=== PATIENT | male | born 1985 | race Caucasian/White ===

== ENCOUNTER 2016-06-23 20:30 | Emergency (ER) | payer OTHER ==
[2016-06-23 20:35] VITALS: TEMP 98.8
[2016-06-23] MEDS ORDERED: SODIUM CHLORIDE 0.9% 1,000 ML IV STA (21:01)
--- NOTE | 2016-06-23 21:06 | ED ---
Recheck HPI - General Chief Complaint: Recheck/Abnormal Lab/Rx Stated Complaint: high blood pressure Time Seen by Provider: 06/23/16 20:38 Source: patient, RN notes reviewed, old records reviewed Mode of arrival: wheelchair Limitations: no limitations - History of Present Illness Initial Comments: Patient is a 31-year-old male with chief complaint of high blood pressure earlier today as well as headache. 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 Patient reports that his blood pressure was 176/90. He reports that his blood pressure is never this elevated, and his blood pressure is usually 90/50. He also reports that his headache is severe and currently rated to be in and out of 10. Patient states that he woke up with a headache 8:00 and has persisted throughout today. He has not taken any Motrin or Tylenol. He also reports that at times he'll have some blurred vision. He denies any changes in vision at this time. Patient reports that he was seen in [place]'s emergency department approximately week ago and had a full cardiac workup was negative. He states that he does have a follow-up appointment on Thursday with a beach expert. Patient states that throughout the days also had occasional intermittent chest pains. Patient denies any recent fever, chills, shortness of breath, back pain, abdominal pain, nausea vomiting, numbness or tingling, dysuria or hematuria, constipation or diarrhea, or any other current symptoms. - Related Data Home Medications Medication Instructions Recorded Confirmed Ascorbic Acid [Vitamin C] 500 mg PO DAILY 06/23/16 06/23/16 Multivitamins, Thera [Multivitamin] 1 tab PO DAILY 06/23/16 06/23/16 Varenicline [Chantix] 1 mg PO BID 06/23/16 06/23/16 Previous Rx's Medication Instructions Recorded Oseltamivir [Tamiflu] 75 mg PO Q12HR #10 cap 06/23/16 Allergies Allergy/AdvReac Type Severity Reaction Status Date / Time No Known Allergies Allergy Verified 06/23/16 20:52 Review of Systems ROS Statement: Those systems with pertinent positive or pertinent negative responses have been documented in the HPI. ROS Other: All systems not noted in ROS Statement are negative. Past Medical History Past Medical History: No Reported History History of Any Multi-Drug Resistant Organisms: None Reported Past Surgical History: No Surgical Hx Reported Past Psychological History: No Psychological Hx Reported Smoking Status: Current every day smoker Past Alcohol Use History: None Reported Past Drug Use History: None Reported General Exam - General Exam Comments Initial Comments: Well appeariing 31 year old male, patient does not appear to be in any acute distress. Limitations: no limitations General appearance: alert, in no apparent distress Head exam: Present: atraumatic, normocephalic, normal inspection Eye exam: Present: normal appearance, PERRL, EOMI. Absent: scleral icterus, conjunctival injection, periorbital swelling ENT exam: Present: normal exam, mucous membranes moist Neck exam: Present: normal inspection. Absent: tenderness, meningismus, lymphadenopathy Respiratory exam: Present: normal lung sounds bilaterally. Absent: respiratory distress, wheezes, rales, rhonchi, stridor Cardiovascular Exam: Present: regular rate, normal rhythm, normal heart sounds. Absent: systolic murmur, diastolic murmur, rubs, gallop, clicks GI/Abdominal exam: Present: soft, normal bowel sounds. Absent: distended, tenderness, guarding, rebound, rigid Extremities exam: Present: normal inspection, full ROM, normal capillary refill. Absent: tenderness, pedal edema, joint swelling, calf tenderness Back exam: Present: normal inspection Neurological exam: Present: alert, oriented X3, CN II-XII intact, normal gait. Absent: abnormal gait Expanded Patient oriented to: Present: person, place, time Speech: Present: fluid speech Cranial nerves: EOM's Intact: Normal, Gag Reflex: Normal, Tongue Deviation: Normal, Facial Sensation: Normal Cerebellar function: Finger to Nose: Normal Upper motor neuron: Pronator Drift: Normal Sensory exam: Upper Extremity Light Touch: Normal, Lower Extremity Light Touch: Normal Motor strength exam: RUE: 5, LUE: 5, RLE: 5, LLE: 5 Eye Response: (4) open spontaneously Motor Response: (6) obeys commands Verbal Response: (5) oriented Psychiatric exam: Present: normal affect, normal mood Skin exam: Present: warm, dry, intact, normal color. Absent: rash Course Vital Signs 06/23/16 06/23/16 20:32 22:32 Temperature 98.8 F Pulse Rate 76 73 Respiratory 18 14 Rate Blood Pressure 137/86 128/87 O2 Sat by Pulse 97 98 Oximetry Medical Decision Making - Medical Decision Making Patient is a 31-year-old male with chief complaint of high blood pressure earlier today as well as headache. 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 Patient reports that his blood pressure was 176/90. He reports that his blood pressure is never this elevated, and his blood pressure is usually 90/50. He also reports that his headache is severe and currently rated to be in and out of 10. Patient states that he woke up with a headache 8:00 and has persisted throughout today. Patients blood pressure was 130/78 while arriving to the . Patient states that this is elevated for him. I explained that this is not a a blood pressure that would indicate end organ damage. Patient denies stress or increased anxiety. Patient given IV fluids, labs obtained. EKG shows normal sinus rhythm, no acute changes. Given patient complaint of headache and occasional blurred vision, CT brain was ordered and was negative for any acute process. Patient has negative cardiac enzymes, and other lab work is negative except patient tests positive for influenza A. Patient was informed of his results and states that he does not believe that he tests positive for the flu, as this can not cause a headache for him and cause his blood pressure to be elevated. He denies any changes in vision at this time and reports his headache is somewhat improved after tylenol. Patient girlfriend stated that she was frustrated that "A Doctor was not involved in his care." I stated that all of the tests were reviewed by myself the PA, as well as Dr. Guerra. Patient appears to be dissatisfied in his care, despite reassuring him that at this time we can treat for the flu and he can return if he has further concerns or complication. I advised patient to follow up with Primary care tomorrow, and that he needs to follow up with beach expert on Thursday at his scheduled appointment. - Lab Data Result diagrams: 06/23/16 21:05 06/23/16 21:05 Lab Results 06/23/16 06/23/16 06/23/16 Range/Units 21:05 21:05 21:05 WBC 8.5 (3.8-10.6) k/uL RBC 5.10 (4.30-5.90) m/uL Hgb 16.0 (13.0-17.5) gm/dL Hct 45.1 (39.0-53.0) % MCV 88.5 (80.0-100.0) fL MCH 31.3 (25.0-35.0) pg MCHC 35.3 (31.0-37.0) g/dL RDW 12.5 (11.5-15.5) % Plt Count 210 (150-450) k/uL Neutrophils % 61 % Lymphocytes % 27 % Monocytes % 7 % Eosinophils % 3 % Basophils % 1 % Neutrophils # 5.2 (1.3-7.7) k/uL Lymphocytes # 2.3 (1.0-4.8) k/uL Monocytes # 0.6 (0-1.0) k/uL Eosinophils # 0.3 (0-0.7) k/uL Basophils # 0.1 (0-0.2) k/uL PT (9.0-12.0) sec INR (<1.1) APTT (22.0-30.0) sec Sodium 142 (137-145) mmol/L Potassium 4.2 (3.5-5.1) mmol/L Chloride 102 (98-107) mmol/L Carbon Dioxide 30 (22-30) mmol/L Anion Gap 10 mmol/L BUN 12 (9-20) mg/dL Creatinine 1.13 (0.66-1.25) mg/dL Est GFR (MDRD) Af Amer >60 (>60 ml/min/1.73 sqM) Est GFR (MDRD) Non-Af >60 (>60 ml/min/1.73 sqM) Glucose 104 H (74-99) mg/dL Calcium 9.7 (8.4-10.2) mg/dL Magnesium 2.1 (1.6-2.3) mg/dL Total Bilirubin 0.9 (0.2-1.3) mg/dL AST 29 (17-59) U/L ALT 38 (21-72) U/L Alkaline Phosphatase 52 (38-126) U/L Total Creatine Kinase 295 H (55-170) U/L CK-MB (CK-2) 2.1 (0.0-2.4) ng/mL CK-MB (CK-2) Rel Index 0.7 Troponin I <0.012 (0.000-0.034) ng/mL Total Protein 7.9 (6.3-8.2) g/dL Albumin 4.6 (3.5-5.0) g/dL Influenza Type A RNA (Not Detectd) Influenza Type B (PCR) (Not Detectd) 06/23/16 06/23/16 Range/Units 21:05 21:09 WBC (3.8-10.6) k/uL RBC (4.30-5.90) m/uL Hgb (13.0-17.5) gm/dL Hct (39.0-53.0) % MCV (80.0-100.0) fL MCH (25.0-35.0) pg MCHC (31.0-37.0) g/dL RDW (11.5-15.5) % Plt Count (150-450) k/uL Neutrophils % % Lymphocytes % % Monocytes % % Eosinophils % % Basophils % % Neutrophils # (1.3-7.7) k/uL Lymphocytes # (1.0-4.8) k/uL Monocytes # (0-1.0) k/uL Eosinophils # (0-0.7) k/uL Basophils # (0-0.2) k/uL PT 10.6 (9.0-12.0) sec INR 1.0 (<1.1) APTT 23.7 (22.0-30.0) sec Sodium (137-145) mmol/L Potassium (3.5-5.1) mmol/L Chloride (98-107) mmol/L Carbon Dioxide (22-30) mmol/L Anion Gap mmol/L BUN (9-20) mg/dL Creatinine (0.66-1.25) mg/dL Est GFR (MDRD) Af Amer (>60 ml/min/1.73 sqM) Est GFR (MDRD) Non-Af (>60 ml/min/1.73 sqM) Glucose (74-99) mg/dL Calcium (8.4-10.2) mg/dL Magnesium (1.6-2.3) mg/dL Total Bilirubin (0.2-1.3) mg/dL AST (17-59) U/L ALT (21-72) U/L Alkaline Phosphatase (38-126) U/L Total Creatine Kinase (55-170) U/L CK-MB (CK-2) (0.0-2.4) ng/mL CK-MB (CK-2) Rel Index Troponin I (0.000-0.034) ng/mL Total Protein (6.3-8.2) g/dL Albumin (3.5-5.0) g/dL Influenza Type A RNA Detected A (Not Detectd) Influenza Type B (PCR) Not Detected (Not Detectd) 06/23/16 19:21 EKG shows normal sinus rhythm, no ST elevations or T wave inversion. - Radiology Data Radiology results: report reviewed CT brain shows no acute process. Disposition Clinical Impression: Influenza A, Headache Disposition: HOME SELF-CARE Condition: Good Instructions: Influenza (ED) Additional Instructions: Patient of ice to rest, increase fluids and to follow-up with primary care doctor. Also follow up with beach expert for the appointment scheduled on Thursday. Return the emergency Department if any alarming signs or symptoms occur. Patient advised to continue to take Tylenol or Motrin for headache. Prescriptions: Oseltamivir [Tamiflu] 75 mg PO Q12HR #10 cap Referrals: Fede Justin MD [Primary Care Provider] - 1-2 days Time of Disposition: 22:15
[2016-06-23] MEDS ORDERED: ACETAMINOPHEN TAB 500 MG TAB PO STA (21:22)
[2016-06-23 21:26] LABS: Basophils # (A) 0.1 k/uL (0-0.2); Basophils % (A) 1 %; CHCM 36.3; Eosinophils # (A) 0.3 k/uL (0-0.7); Eosinophils % (A) 3 %; HCT 45.1 % (39.0-53.0); HDW 2.75; Luc % (Auto) 2; Lymphocytes # (A) 2.3 k/uL (1.0-4.8); Lymphocytes % (A) 27 %; MCH 31.3 pg (25.0-35.0); MCHC 35.3 g/dL (31.0-37.0); MCV 88.5 fL (80.0-100.0); Mean Platelet Volume 8.2; Monocytes # (A) 0.6 k/uL (0-1.0); Monocytes % (A) 7 %; Neutrophils # (A) 5.2 k/uL (1.3-7.7); Neutrophils % (A) 61 %; RDW 12.5 % (11.5-15.5); WBC 8.5 k/uL (3.8-10.6); WBC (Perox) 8.24
[2016-06-23 21:37] LABS: Partial Thromboplastin Time 23.7 sec (22.0-30.0); Prothrombin Time 10.6 sec (9.0-12.0)
--- NOTE | 2016-06-23 21:40 | CT ---
EXAMINATION TYPE: CT brain wo con DATE OF EXAM: 06/23/2016 9:27 PM COMPARISON: NONE HISTORY: Hypertension, headache and dizziness today. CT DLP: 966.20 mGycm Automated exposure control for dose reduction was used. FINDINGS: The ventricles have normal size. There is no mass effect or midline shift. There is no sign of intrac ranial hemorrhage. Calvarium is intact. IMPRESSION: Normal unenhanced head CT scan.
[2016-06-23 21:41] LABS: ALT 38 U/L (21-72); AST 29 U/L (17-59); Alkaline Phosphatase 52 U/L (38-126); Anion Gap 10 mmol/L; Blood Urea Nitrogen 12 mg/dL (9-20); Calcium 9.7 mg/dL (8.4-10.2); Carbon Dioxide 30 mmol/L (22-30); Chloride 102 mmol/L (98-107); Glucose 104 mg/dL (74-99); Magnesium 2.1 mg/dL (1.6-2.3); Non-African American GFR(MDRD) >60 (>60 ml/min/1.73 sqM); Potassium 4.2 mmol/L (3.5-5.1); Sodium 142 mmol/L (137-145); Total Bilirubin 0.9 mg/dL (0.2-1.3); Total Protein 7.9 g/dL (6.3-8.2)
[2016-06-23 21:53] LABS: Creatine Kinase 295 U/L (55-170)
[2016-06-23 22:06] LABS: Creatine Kinase MB 2.1 ng/mL (0.0-2.4); Troponin I <0.012 ng/mL (0.000-0.034)
[2016-06-23 22:34] VITALS: BP 128/87; PULSE 73; RESP 14
== END 2016-06-23 22:34 | disposition home or self-care (01) ==
LOC: EC 20:30 → SUPCPDRO 20:30 → EC 22:34
DX: J10.1 Influenza due to other identified influenza virus with other respiratory manifestations (principal); R51 Headache; I10 Essential (primary) hypertension; F17.200 Nicotine dependence, unspecified, uncomplicated; Z79.899 Other long term (current) drug therapy
CPT/HCPCS: 36415; 70450; 80053; 82550; 82553; 83735; 84484; 85025; 85610; 85730; 87502; 93005; 99284